=== PATIENT | female | born 1980 | race Caucasian/White ===

== ENCOUNTER 2018-08-14 11:26 | Emergency (ER) | payer MEDICAID ==
[~2018-08-14] VITALS: Ht 160 cm; Wt 65.9 kg
[2018-08-14 11:47] VITALS: BP 117/60
--- NOTE | 2018-08-14 12:07 | NUR ---
PATIENT AMBULATED TO BED 4.
--- NOTE | 2018-08-14 12:10 | NUR ---
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 PT IS AAOX4, VSS AT THIS TIME, BED DOWN, BEDRAIL UP X 1, ER MD AWARE AND NOTIFIED OF PT STATUS. PMH: ASTHMA NKA
--- NOTE | 2018-08-14 12:13 | NUR ---
FLU SWAB DONE AND PUT INTO LAB CONTAINER, LAB CALLED FOR DIRECTOR OF SAFETY
[2018-08-14] MEDS ORDERED: ALBUTEROL SULFATE/IPRATROPIU 3 ML SOL IH ONE (12:55)
[2018-08-14] MEDS ORDERED: CLINDAMYCIN 600 MG/4 ML VIAL IM ONE (12:55)
[2018-08-14] MEDS ORDERED: DEXAMETHASONE 10 MG/ML VIAL IM ONE (12:55)
--- NOTE | 2018-08-14 12:58 | NUR ---
Patient being evaluated by DR. PATE at bedside.
[2018-08-14 14:14] VITALS: BP 115/58
--- NOTE | 2018-08-14 14:14 | NUR ---
Patient discharged with v/s stable. Written and verbal after care instructions given and explained. Patient alert, oriented and verbalized understanding of instructions. Ambulatory with steady gait. All questions addressed prior to discharge. ID band removed. Patient advised to follow up with PMD. Rx of atarax, albuterol, promethazine, azithromycin, prednisone given. Patient educated on indication of medication including possible reaction and side effects. Opportunity to ask questions provided and answered.
== END 2018-08-14 14:14 | disposition home or self-care (01) ==
LOC: MED 11:26
DX: J45.901 Unspecified asthma with (acute) exacerbation (principal); L30.9 Dermatitis, unspecified
CPT/HCPCS: 87804; 94640; 94760; 96372; 99283; J1100; J3490; J7620